=== PATIENT | male | born 1990 ===

== ENCOUNTER 2019-06-26 21:14 | Emergency (ER) | payer SELFPAY ==
[~2019-06-26] VITALS: Ht 165.1 cm; Wt 120.2 kg
[2019-06-26 21:14] VITALS: BP_SYST 153
--- NOTE | 2019-06-26 21:20 | NUR ---
Patient to ER bed Hallway to gown for evaluation. Side rails up.
--- NOTE | 2019-06-26 21:25 | NUR ---
Dr. Shea bedside for Pt eval
--- NOTE | 2019-06-26 21:30 | NUR ---
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 Pt reports he has not checked his blood sugar in while. He has an insulin pump, which he states is functional. He denies pain, vomiting, or any other medical complaints. Pt has Hx of type 1 diabetes. Accu chked 87. No other complaints and or injuries noted. VSS no s/s of acute distress. Resting on gurney rails up
[2019-06-26 22:00] VITALS: BP_SYST 126
--- NOTE | 2019-06-26 22:00 | NUR ---
Patient given written and verbal discharge instructions and verbalizes understanding. ER MD discussed with patient the results and treatment provided. Patient in stable condition. ID arm band removed. Patient educated on pain management and to follow up with PMD. Pain Scale 0/10 Opportunity for questions provided and answered.
== END 2019-06-26 22:00 ==
LOC: SED 21:14
DX: Z02.89 Encounter for other administrative examinations (principal); E10.9 Type 1 diabetes mellitus without complications
CPT/HCPCS: 82962; 99283